=== PATIENT | male | born 1995 | race Caucasian/White ===

== ENCOUNTER 2020-04-12 11:13 | Emergency (ER) | payer MEDICAID ==
[~2020-04-12] VITALS: Ht 172.7 cm; Wt 65.8 kg
[2020-04-12] MEDS ORDERED: HALOPERIDOL LACTATE INJ 5 MG/ML VIAL ONE (12:10)
[2020-04-12] MEDS ORDERED: LORAZEPAM INJ 2 MG/ML VIAL ONE (12:11)
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
[2020-04-12] MEDS ORDERED: HALOPERIDOL LACTATE INJ 5 MG/ML VIAL IM ONE (12:30)
[2020-04-12] MEDS ORDERED: LORAZEPAM INJ 2 MG/ML VIAL IM ONE (12:30)
--- NOTE | 2020-04-12 14:00 | NUR ---
Patient is resting comfortably in bed with eyes closed. Easily aroused. VSS
--- NOTE | 2020-04-12 17:00 | NUR ---
Patient is resting comfortably in bed with eyes closed. Easily aroused. VSS
--- NOTE | 2020-04-12 19:03 | NUR ---
PATIENT IS RESTING. PATIENT IS BREATHING EVENLY AND UNLABORED ON ROOM AIR. CONNECTED TO MONITOR. NO SOB. SITTER AT BEDSIDE.
--- NOTE | 2020-04-12 22:35 | NUR ---
PATIENT STATES, "I GOTTA GO MAKE THAT MONEY. I HAVE TO GET OUT OF HERE." NOTIFIED. MD MARION OKAY'D TO DISCHARGE
--- NOTE | 2020-04-12 22:36 | NUR ---
GIVEN FOOD AND WATER.
--- NOTE | 2020-04-12 22:36 | NUR ---
Patient given written and verbal discharge instructions. Patient verbalizes understanding of instructions. Patient is ambulatory with steady gait. Refuses offer of residential placement. Patient given list of available shelters in surrounding area.
--- NOTE | 2020-04-12 22:36 | NUR ---
PATIENT IS AMBULATORY WITH A STEADY GAIT.
--- NOTE | 2020-04-12 22:36 | NUR ---
Carlos alba in ED - 04/12/20 at 2236 by PAT Patient discharged to home in stable condition. Written and verbal after care instructions given. Patient verbalizes understanding of instruction.
--- NOTE | 2020-04-12 22:36 | NUR ---
Patient discharged to home in stable condition. Written and verbal after care instructions given. Patient verbalizes understanding of instruction.
[2020-04-12 22:38] VITALS: BP 110/72
== END 2020-04-12 22:39 | disposition home or self-care (01) ==
LOC: ER 11:13
DX: S00.81XA Abrasion of other part of head, initial encounter (principal); R45.1 Restlessness and agitation; F15.10 Other stimulant abuse, uncomplicated; Z60.2 Problems related to living alone; W22.8XXA Striking against or struck by other objects, initial encounter; Y93.89 Activity, other specified; Y92.89 Other specified places as the place of occurrence of the external cause; Y99.8 Other external cause status
CPT/HCPCS: 96372 ×2; 99285; J1630; J2060

== ENCOUNTER 2020-04-25 12:52 | Emergency (ER) | payer MEDICAID ==
[~2020-04-25] VITALS: Ht 170.2 cm; Wt 74.8 kg
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
[2020-04-25] MEDS ORDERED: OLANZAPINE 10 MG VIAL IM ONE ×3 (16:53→17:50)
[2020-04-25] MEDS ORDERED: LORAZEPAM INJ 2 MG/ML VIAL ONE ×2 (16:54→17:52)
[2020-04-25] MEDS ORDERED: OLANZAPINE 5 MG TABLET PO ONE (17:00)
[2020-04-25] MEDS ORDERED: LORAZEPAM 1 MG TABLET PO ONE (17:00)
[2020-04-25] MEDS ORDERED: LORAZEPAM INJ 2 MG/ML VIAL IM ONE (17:00)
--- NOTE | 2020-04-25 17:20 | NUR ---
Ativan and Zyprexa IM given as ordered.
[2020-04-25] MEDS ORDERED: diphenhydrAMINE HCL 50 MG/ML VIAL IM ONE (17:30)
[2020-04-25] MEDS ORDERED: HALOPERIDOL LACTATE INJ 5 MG/ML VIAL IM ONE (17:30)
[2020-04-25] MEDS ORDERED: diphenhydrAMINE HCL 50 MG/ML VIAL ONE (17:50)
[2020-04-25] MEDS ORDERED: HALOPERIDOL LACTATE INJ 5 MG/ML VIAL ONE (17:50)
--- NOTE | 2020-04-25 18:06 | NUR ---
Dionisio and Ratna held for patient sleeping at this time, made aware.
--- NOTE | 2020-04-25 20:44 | NUR ---
PT AWAKE. [id number]. AMBULATORY WITH STEADY GAIT. MEDICALLY CLEARED FOR DISCHARGE. PT LEFT WITHOUT AFTER CARE INSTRUCTIONS.
[2020-04-25 20:48] VITALS: BP 127/84
== END 2020-04-25 20:49 | disposition home or self-care (01) ==
LOC: ER 12:58
DX: F15.20 Other stimulant dependence, uncomplicated (principal); R45.1 Restlessness and agitation; R41.0 Disorientation, unspecified; Z60.2 Problems related to living alone
CPT/HCPCS: 96372 ×2; 99284; J1200; J1630; J2060; J3490